=== PATIENT | male | born 1985 | race Caucasian/White ===

== ENCOUNTER 2024-01-31 09:18 | Outpatient (OUT) | payer OTHER, SELFPAY | END 2024-01-31 09:19 | disposition home or self-care (01) | LOC: SLEEP 09:18 | PROVIDERS: PCP Nurse Practitioner Family; Visit Provider Nurse Practitioner Family | DX: G47.33 Obstructive sleep apnea (adult) (pediatric) (principal) | CPT/HCPCS: 95806 ==

== ENCOUNTER 2024-02-22 07:57 | Outpatient (OUT) | payer OTHER, SELFPAY | END 2024-02-22 07:58 | disposition home or self-care (01) | LOC: SLEEP 07:57 | PROVIDERS: PCP Nurse Practitioner Family; Visit Provider Nurse Practitioner Family | DX: G47.33 Obstructive sleep apnea (adult) (pediatric) (principal) | CPT/HCPCS: 95811 ==